=== PATIENT | male | born 1960 | race Caucasian/White ===

== ENCOUNTER 2016-10-16 11:00 | Emergency (ER) | payer OTHER | END 2016-10-16 19:41 | disposition home or self-care (01) | LOC: ER 11:00 | DX: I82.402 Acute embolism and thrombosis of unspecified deep veins of left lower extremity (principal); F17.210 Nicotine dependence, cigarettes, uncomplicated | CPT/HCPCS: 36415; 80048; 85025; 85610; 85730; 93971 ==